=== PATIENT | female | born 1985 | race Caucasian/White ===

== ENCOUNTER 2017-08-05 20:53 | Inpatient (IN) | payer OTHER ==
[2017-08-05] MEDS ORDERED: PROMETHAZINE 12.5 MG in IV DEXTROSE 5% 50 ML IV (22:15)
[2017-08-05] MEDS ORDERED: HYDROmorphone 2 MG/ML VIAL IV (22:15)
[2017-08-05] MEDS ORDERED: CETIRIZINE HCL 10 MG TABLET. PO (22:15)
[2017-08-05] MEDS ORDERED: SENNOSIDES/DOCUSATE 8.6/50MG TABLET. PO (22:15)
[2017-08-05] MEDS ORDERED: ACETAMINOPHEN 325 MG TABLET. PO (22:15)
[2017-08-05] MEDS ORDERED: DICYCLOMINE HCL 10 MG CAPSULE PO (22:15)
[2017-08-05] MEDS: clonazePAM 1 MG TABLET PO (23:10)
[2017-08-05] MEDS: ZOLPIDEM 5 MG TABLET. PO (23:10)
[2017-08-05] MEDS: IV RINGERS,LACTATED 1000ML 1,000 ML IV (23:10)
[2017-08-05] MEDS: KETOROLAC 15 MG/ML VIAL. IV (23:11)
[2017-08-05] MEDS: ONDANSETRON PF 4 MG/2 ML VIAL. IV (23:11)
[2017-08-06] MEDS: IV RINGERS,LACTATED 1000ML 1,000 ML IV ×4 (03:09→20:34)
[2017-08-06 08:06] LABS: POC GLUCOSE 129 mg/dL (70-99)
[2017-08-06 08:39] LABS: ADD MAN DIFF? NO
[2017-08-06] MEDS: PANTOPRAZOLE IV PUSH 40 MG VIAL. IVP (08:42)
[2017-08-06] MEDS: ONDANSETRON PF 4 MG/2 ML VIAL. IV ×3 (08:45→22:45)
[2017-08-06] MEDS: LACTOBACILLUS RHAMNOSUS GG 1 CAPSULE. PO ×2 (08:45→20:36)
[2017-08-06] MEDS: CHOLECALCIFEROL (VITAMIN D3) 5,000 UNIT CAPSULE PO (08:46)
[2017-08-06] MEDS: TAMSULOSIN 0.4 MG CAP.ER.24H. PO (08:46)
[2017-08-06] MEDS: LINAGLIPTIN 5 MG TABLET PO (08:46)
[2017-08-06] MEDS: buPROPion XL 150 MG TAB.ER.24H. PO (08:46)
[2017-08-06 08:50] LABS: BASO # 0.1 x10^3/uL (0.0-0.2); BASO % 1 % (0-3); EOS # 0.1 x10^3/uL (0.0-0.7); EOS % 1 % (0-3); HEMOGLOBIN 12.8 g/dL (12.0-15.5); LYMPH # 2.5 x10^3/uL (1.0-4.8); LYMPH % 32 % (24-48); MEAN CORPUSCULAR HEMOGLOBIN 29 pg (25-35); MEAN CORPUSCULAR HGB CONC 34 g/dL (31-37); MEAN CORPUSCULAR VOLUME 85 fL (79-100); MONO # 0.5 x10^3/uL (0.0-1.1); MONO % 7 % (0-9); NEUT # 4.7 x10^3uL (1.8-7.7); NEUT % 60 % (31-73); PLATELET COUNT 314 x10^3/uL (140-400); RED BLOOD COUNT 4.45 x10^6/uL (3.50-5.40); RED CELL DISTRIBUTION WIDTH 13.9 % (11.5-14.5); WHITE BLOOD COUNT 7.9 x10^3/uL (4.0-11.0)
[2017-08-06 08:51] LABS: ANION GAP 8 (6-14); BLOOD UREA NITROGEN 10 mg/dL (7-20); BUN/CREATININE RATIO 7 (6-20); CALCIUM 9.3 mg/dL (8.5-10.1); CARBON DIOXIDE 29 mmol/L (21-32); CHLORIDE 104 mmol/L (98-107); CREATININE 1.4 mg/dL (0.6-1.0); GFR 43.6; GLUCOSE 127 mg/dL (70-99); POTASSIUM 3.8 mmol/L (3.5-5.1); SODIUM 141 mmol/L (136-145)
[2017-08-06 08:57] LABS: ALBUMIN 3.1 g/dL (3.4-5.0); ALBUMIN/GLOBULIN RATIO 0.8 (1.0-1.7); ALK PHOS 94 U/L (46-116); ALT (SGPT) 50 U/L (14-59); AST (SGOT) 25 U/L (15-37); TOTAL BILIRUBIN 0.4 mg/dL (0.2-1.0)
[2017-08-06] MEDS: ARIPiprazole 5 MG TABLET PO (09:00)
[2017-08-06 12:01] LABS: POC GLUCOSE 115 mg/dL (70-99)
[2017-08-06 12:31] LABS: BILIRUBIN,URINE NEGATIVE (NEG); CLARITY,URINE CLEAR; COLOR,URINE YELLOW; GLUCOSE,URINE NEGATIVE (NEG); NITRITE,URINE NEGATIVE (NEG); PROTEIN,URINE NEGATIVE (NEG-TRACE); UROBILINOGEN,URINE 0.2 mg/dL (0.2 mg/dL)
[2017-08-06 12:56] LABS: SQUAMOUS EPITHELIAL CELL,UR FEW /LPF
[2017-08-06 12:57] LABS: BACTERIA,URINE FEW /HPF (0-FEW); RBC,URINE RARE /HPF (0-2); WBC,URINE 0 /HPF (0-4)
[2017-08-06] MEDS: KETOROLAC 15 MG/ML VIAL. IV ×2 (14:47→22:53)
[2017-08-06 17:21] LABS: POC GLUCOSE 110 mg/dL (70-99)
[2017-08-06] MEDS: [UNRECOGNIZED DRUG - REMARK] PO (20:36)
[2017-08-06 21:09] LABS: POC GLUCOSE 116 mg/dL (70-99)
[2017-08-06] MEDS: clonazePAM 1 MG TABLET PO (22:41)
[2017-08-06] MEDS: ZOLPIDEM 5 MG TABLET. PO (22:41)
[2017-08-07] MEDS: PROMETHAZINE 12.5 MG in IV NORMAL SALINE 50ML 50 ML IV (01:22)
[2017-08-07] MEDS: IV RINGERS,LACTATED 1000ML 1,000 ML IV ×3 (02:18→12:19)
[2017-08-07 04:33] LABS: ADD MAN DIFF? NO
[2017-08-07 04:39] LABS: BASO % 0 % (0-3); EOS # 0.2 x10^3/uL (0.0-0.7); EOS % 2 % (0-3); HEMATOCRIT 35.5 % (36.0-47.0); LYMPH # 3.3 x10^3/uL (1.0-4.8); LYMPH % 35 % (24-48); MEAN CORPUSCULAR HEMOGLOBIN 29 pg (25-35); MEAN CORPUSCULAR HGB CONC 34 g/dL (31-37); MEAN CORPUSCULAR VOLUME 85 fL (79-100); MONO # 0.6 x10^3/uL (0.0-1.1); MONO % 6 % (0-9); NEUT # 5.4 x10^3uL (1.8-7.7); NEUT % 57 % (31-73); PLATELET COUNT 298 x10^3/uL (140-400); RED BLOOD COUNT 4.15 x10^6/uL (3.50-5.40); WHITE BLOOD COUNT 9.5 x10^3/uL (4.0-11.0)
[2017-08-07 04:55] LABS: ALBUMIN 2.8 g/dL (3.4-5.0); ALBUMIN/GLOBULIN RATIO 0.8 (1.0-1.7); ALK PHOS 91 U/L (46-116); ALT (SGPT) 55 U/L (14-59); ANION GAP 7 (6-14); AST (SGOT) 37 U/L (15-37); BLOOD UREA NITROGEN 11 mg/dL (7-20); BUN/CREATININE RATIO 8 (6-20); CALCIUM 8.9 mg/dL (8.5-10.1); CARBON DIOXIDE 30 mmol/L (21-32); CHLORIDE 105 mmol/L (98-107); CREATININE 1.4 mg/dL (0.6-1.0); GFR 43.6; GLUCOSE 118 mg/dL (70-99); PHOSPHORUS 5.3 mg/dL (2.6-4.7); POTASSIUM 3.6 mmol/L (3.5-5.1); SODIUM 142 mmol/L (136-145); TOTAL BILIRUBIN 0.3 mg/dL (0.2-1.0); TOTAL PROTEIN 6.3 g/dL (6.4-8.2)
[2017-08-07] MEDS: ONDANSETRON PF 4 MG/2 ML VIAL. IV (05:44)
[2017-08-07] MEDS ORDERED: LIDOCAINE 2% JELLY 6ML IN APPLICATOR. (06:56)
[2017-08-07] MEDS ORDERED: fentaNYL PF VIAL 100 MCG/2 ML VIAL IV ×2 (07:00→18:15)
[2017-08-07] MEDS ORDERED: IV RINGERS,LACTATED 1000ML 1,000 ML IV (07:00)
[2017-08-07] MEDS ORDERED: ONDANSETRON PF 4 MG/2 ML VIAL. IV (07:00)
[2017-08-07] MEDS ORDERED: MORPHINE SULFATE 4 MG/ML DISP.SYRIN. IV (07:00)
[2017-08-07] MEDS ORDERED: LIDOCAINE 1% PF 2 ML VIAL. ID (07:00)
[2017-08-07] MEDS: KETOROLAC 15 MG/ML VIAL. IV ×2 (07:56→23:59)
[2017-08-07] MEDS: PANTOPRAZOLE IV PUSH 40 MG VIAL. IVP (07:56)
[2017-08-07] MEDS: LINAGLIPTIN 5 MG TABLET PO (09:00)
[2017-08-07] MEDS: ARIPiprazole 5 MG TABLET PO (09:00)
[2017-08-07] MEDS: LACTOBACILLUS RHAMNOSUS GG 1 CAPSULE. PO ×2 (09:00→21:23)
[2017-08-07] MEDS: buPROPion XL 150 MG TAB.ER.24H. PO (09:00)
[2017-08-07] MEDS: CHOLECALCIFEROL (VITAMIN D3) 5,000 UNIT CAPSULE PO (09:00)
[2017-08-07] MEDS: TAMSULOSIN 0.4 MG CAP.ER.24H. PO (09:00)
[2017-08-07 11:19] LABS: POC GLUCOSE 112 mg/dL (70-99)
[2017-08-07] MEDS: fentaNYL PF VIAL 100 MCG/2 ML VIAL IV ×4 (11:23→23:59)
[2017-08-07] MEDS: CIPROFLOXACIN 400MG PREMIX 200 ML IV (13:22)
[2017-08-07 14:34] LABS: CREATININE PTH 1.34 mg/dL (0.57-1.00); PHOSPHORUS PTH 5.3 mg/dL (2.5-4.5); PTH INTACT 42 pg/mL (15-65); eGFR AFRICAN-AMER 60 (>59); eGFR NON AFRICAN-AMER 52 (>59)
[2017-08-07] MEDS ORDERED: LIDOCAINE 1% PF 5 ML VIAL. (14:42)
[2017-08-07] MEDS ORDERED: PROPOFOL 0 ML IV (14:42)
[2017-08-07] MEDS ORDERED: MIDAZOLAM HCL/PF 2 MG/2 ML VIAL. (16:25)
[2017-08-07] MEDS ORDERED: DEXAMETHASONE SOD PHOS 20 MG/5 ML VIAL. (16:48)
[2017-08-07] MEDS ORDERED: ONDANSETRON PF 4 MG/2 ML VIAL. (16:48)
[2017-08-07] MEDS ORDERED: PROPOFOL 20 ML IV (16:48)
[2017-08-07] MEDS ORDERED: fentaNYL PF VIAL 100 MCG/2 ML VIAL (16:48)
[2017-08-07] MEDS: IOHEXOL 300 MG/ML 100ML VIAL. (16:56)
[2017-08-07] MEDS ORDERED: ePHEDrine PF IN SALINE 50 MG/5 ML DISP.SYRIN IV (17:01)
[2017-08-07] MEDS: PROCHLORPERAZINE 10 MG/2 ML VIAL. IV (17:40)
[2017-08-07 17:55] LABS: POC GLUCOSE 100 mg/dL (70-99)
[2017-08-07] MEDS: IV NORMAL SALINE 1000ML BAG 1,000 ML IV (18:31)
[2017-08-07] MEDS: [UNRECOGNIZED DRUG - REMARK] PO (21:00)
[2017-08-07] MEDS ORDERED: HYOSCYAMINE 0.125 MG TAB.RAPDIS PO (21:15)
[2017-08-07] MEDS: HYOSCYAMINE 0.125 MG TAB.RAPDIS PO (21:23)
[2017-08-07 21:52] LABS: POC GLUCOSE 146 mg/dL (70-99)
[2017-08-08] MEDS: HYOSCYAMINE 0.125 MG TAB.RAPDIS PO ×2 (02:14→08:44)
[2017-08-08] MEDS: ONDANSETRON PF 4 MG/2 ML VIAL. IV (02:15)
[2017-08-08 05:10] LABS: HEMATOCRIT 39.2 % (36.0-47.0); HEMOGLOBIN 13.4 g/dL (12.0-15.5); MEAN CORPUSCULAR HEMOGLOBIN 29 pg (25-35); MEAN CORPUSCULAR HGB CONC 34 g/dL (31-37); MEAN CORPUSCULAR VOLUME 86 fL (79-100); PLATELET COUNT 356 x10^3/uL (140-400); RED BLOOD COUNT 4.57 x10^6/uL (3.50-5.40); RED CELL DISTRIBUTION WIDTH 14.1 % (11.5-14.5); WHITE BLOOD COUNT 8.2 x10^3/uL (4.0-11.0)
[2017-08-08 06:06] LABS: ANION GAP 10 (6-14); BLOOD UREA NITROGEN 13 mg/dL (7-20); CALCIUM 9.1 mg/dL (8.5-10.1); CARBON DIOXIDE 26 mmol/L (21-32); CHLORIDE 103 mmol/L (98-107); CREATININE 1.3 mg/dL (0.6-1.0); GFR 47.5; GLUCOSE 148 mg/dL (70-99); POTASSIUM 3.9 mmol/L (3.5-5.1); SODIUM 139 mmol/L (136-145)
[2017-08-08] MEDS: fentaNYL PF VIAL 100 MCG/2 ML VIAL IV (06:16)
[2017-08-08] MEDS: KETOROLAC 15 MG/ML VIAL. IV (06:16)
[2017-08-08] MEDS: IV NORMAL SALINE 1000ML BAG 1,000 ML IV (06:18)
[2017-08-08 06:31] LABS: POC GLUCOSE 116 mg/dL (70-99)
[2017-08-08 08:05] LABS: POC GLUCOSE 109 mg/dL (70-99)
[2017-08-08] MEDS: TAMSULOSIN 0.4 MG CAP.ER.24H. PO (08:41)
[2017-08-08] MEDS: PANTOPRAZOLE 40 MG TABLET.DR. PO (08:41)
[2017-08-08] MEDS: buPROPion XL 150 MG TAB.ER.24H. PO (08:41)
[2017-08-08] MEDS: LACTOBACILLUS RHAMNOSUS GG 1 CAPSULE. PO (08:42)
[2017-08-08] MEDS: ARIPiprazole 5 MG TABLET PO (08:42)
[2017-08-08] MEDS: LINAGLIPTIN 5 MG TABLET PO (08:42)
[2017-08-08] MEDS: CHOLECALCIFEROL (VITAMIN D3) 5,000 UNIT CAPSULE PO (08:42)
== END 2017-08-08 11:00 | disposition home or self-care (01) | DRG 668 ==
LOC: 6 SOUTH 20:53
PROVIDERS: Internal Medicine
PROC: 0T778DZ Dilation of Left Ureter with Intraluminal Device, Via Natural or Artificial Opening Endoscopic (ICD-10-PCS; principal; 2017-08-07 16:31)
PROC: BT1F1ZZ Fluoroscopy of Left Kidney, Ureter and Bladder using Low Osmolar Contrast (ICD-10-PCS; 2017-08-07 16:31)
PROC: 0TC78ZZ Extirpation of Matter from Left Ureter, Via Natural or Artificial Opening Endoscopic (ICD-10-PCS; 2017-08-07 16:31)
DX: N13.2 Hydronephrosis with renal and ureteral calculous obstruction (principal); E43 Unspecified severe protein-calorie malnutrition; E66.01 Morbid (severe) obesity due to excess calories; E11.9 Type 2 diabetes mellitus without complications; E78.5 Hyperlipidemia, unspecified; D72.829 Elevated white blood cell count, unspecified; Z68.41 Body mass index [BMI] 40.0-44.9, adult; F31.9 Bipolar disorder, unspecified; F43.10 Post-traumatic stress disorder, unspecified; G47.33 Obstructive sleep apnea (adult) (pediatric); I10 Essential (primary) hypertension; K21.9 Gastro-esophageal reflux disease without esophagitis; M54.5 Low back pain; K58.9 Irritable bowel syndrome, unspecified; N23 Unspecified renal colic; N32.89 Other specified disorders of bladder; Z82.49 Family history of ischemic heart disease and other diseases of the circulatory system; Z88.8 Allergy status to other drugs, medicaments and biological substances
CPT/HCPCS: 36415; 74018; 76000; 80048; 80053; 81001; 82962; 83970; 84100; 85025; 85027; A7015; C1769; C2617; C9113; J0744; J0780; J1100; J1885; J2405; J2550; J2704; J3010; J7030; J7120; Q9967